=== PATIENT | female | born 1965 | race Caucasian/White ===

== ENCOUNTER 2017-08-17 16:46 | Emergency (ER) | payer BC, SELFPAY ==
[2017-08-17 17:51] LABS: #Basophils 0.1 thou/uL (0.0-0.2); #Eosinphils 0.1 thou/uL (0.0-0.7); #Lymphocytes 3.8 thou/uL (1.20-3.40); #Monocytes 0.5 thou/uL (0.11-0.59); #Neutrophils 4.7 thou/uL (1.40-6.50); %Basophils 1.3 % (0.0-1.0); %Eosinophils 1.2 % (0.0-10.0); %Lymphocytes 40.7 % (21.0-51.0); %Monocytes 5.8 % (0.0-10.0); Hemoglobin 12.9 g/dL (12.0-16.0); Mean Corpuscular HGB CONC 36.1 g/dL (32.0-36.0); Mean Corpuscular Hemoglobin 30.9 pg (27.0-31.0); Mean Corpuscular Volume 85.6 fl (81.0-99.0); Mean Platelet Volume 8.9 fL (7.4-10.4); Platelet Count 269 thou/uL (130-400); RBC Distribution Width 11.5 % (11.5-14.5); Red Blood Cell (RBC) Count 4.16 mill/uL (4.20-5.40); White Blood Cell (WBC) Count 9.3 thou/uL (4.8-10.8)
[2017-08-17 18:09] LABS: ALT (SGPT) 29 U/L (8-55); AST (SGOT) 27 U/L (5-34); Alkaline Phosphatase 162 U/L (40-150); Anion Gap 20 mmol/L (10-20); BUN (Urea Nitrogen) 20 mg/dL (9.8-20.1); Bilirubin, Total 0.7 mg/dL (0.2-1.2); Calc. Creatinine Clearance 0 mL/min (70-130); Carbon Dioxide 19 mmol/L (22-29); Chloride 88 mmol/L (98-107); Estimated GFR-MDRD 41; Globulin 4.5 g/dL (2.4-3.5); Potassium 3.5 mmol/L (3.5-5.1); Protein, Total 8.5 g/dL (6.0-8.3); Sodium 123 mmol/L (136-145)
[2017-08-17 18:14] LABS: Glucose 561 mg/dL (70-105)
[2017-08-17 18:26] LABS: Base Excess-Venous 0.6 mmol/L (0 (+/- 2.5)); Bicarbonate (HCO3v) 24.2 mmol/L (1.0-85.0); CO2 Tension (PvCO2) 34.8 mmHg (41.0-51.0); Calcium, Ionized 1.03 mmol/L (1.12-1.32); Hemoglobin - Calc 12.8 g/dL (12.0-18.0); O2 Tension (PvO2) 31.2 mmHg (35.0-45.0); Potassium 3.3 mmol/L (3.4-4.7); T. Carbon Dioxide 25.3 mmol/L (1.0-85.0); vO2 Saturation-calc 63.8 % (94-98)
[2017-08-17 18:28] LABS: Bilirubin Negative (Negative); Blood, Urine Negative (Negative); Clarity CLEAR (Clear); Glucose, Urine (Dipstick) 500 mg/dL (Negative); Leukocyte Negative (Negative); Nitrite Negative (Negative); Protein, Urine (Dipstick) Negative (Neg-Trace); Specific Gravity, Urine 1.016 (1.002-1.036); Urobilinogen 0.2 mg/dL (0.2-1.0)
[2017-08-17] MEDS ORDERED: Insulin Regular 300 UNITS/3 ML VIAL ONE (18:33)
[2017-08-17] MEDS ORDERED: Potassium Chloride 20 MEQ/100 ML PREMIX BAG ONE (18:33)
[2017-08-17] MEDS ORDERED: Potassium Bicarbonate/Cit Ac 25 MEQ TAB PO SCH (18:45)
[2017-08-17 20:30] LABS: Anion Gap 16 mmol/L (10-20); BUN (Urea Nitrogen) 18 mg/dL (9.8-20.1); Calc. Creatinine Clearance 0 mL/min (70-130); Calcium 8.9 mg/dL (7.8-10.44); Carbon Dioxide 19 mmol/L (22-29); Chloride 98 mmol/L (98-107); Estimated GFR-MDRD 56; Glucose 320 mg/dL (70-105); Potassium 4.4 mmol/L (3.5-5.1); Sodium 129 mmol/L (136-145)
--- NOTE | 2017-08-28 15:09 | EKG ---
Test Reason : Blood Pressure : / mmHG Vent. Rate : 082 BPM Atrial Rate : 082 BPM P-R Int : 152 ms QRS Dur : 082 ms QT Int : 398 ms P-R-T Axes : 019 003 005 degrees QTc Int : 464 ms Normal sinus rhythm Normal ECG Confirmed by PEMA PHILLIPS ([id number]), continuity editor RACHEL BULLOCK ([id number]) on 08/28/2017 3:09:18 PM Referred By: Confirmed By:PEMA PHILLIPS
== END 2017-08-17 22:02 | disposition home or self-care (01) ==
LOC: ERS 16:46
DX: E11.65 Type 2 diabetes mellitus with hyperglycemia (principal); E86.0 Dehydration; E03.9 Hypothyroidism, unspecified; E78.5 Hyperlipidemia, unspecified; I10 Essential (primary) hypertension; F41.9 Anxiety disorder, unspecified; F32.9 Major depressive disorder, single episode, unspecified; Z79.899 Other long term (current) drug therapy; Z79.84 Long term (current) use of oral hypoglycemic drugs
CPT/HCPCS: 36415; 36416; 80053; 81003; 82010; 82330; 82803; 85025; 93005; 96361; 96374; J1815; J3480

== ENCOUNTER 2018-12-15 23:55 | Emergency (ER) | payer BC ==
[2018-12-16 00:28] LABS: #Basophils 0.1 thou/uL (0.0-0.2); #Eosinphils 0.1 thou/uL (0.0-0.7); #Lymphocytes 2.5 thou/uL (1.20-3.40); #Monocytes 0.6 thou/uL (0.11-0.59); #Neutrophils 8.1 thou/uL (1.40-6.50); %Basophils 0.6 % (0.0-1.0); %Eosinophils 1.1 % (0.0-10.0); %Lymphocytes 22.3 % (21.0-51.0); Hemoglobin 12.9 g/dL (12.0-16.0); Mean Corpuscular HGB CONC 35.6 g/dL (32.0-36.0); Mean Corpuscular Hemoglobin 31.3 pg (27.0-31.0); Mean Corpuscular Volume 87.9 fL (78.0-98.0); Mean Platelet Volume 8.5 fL (7.4-10.4); Platelet Count 322 thou/uL (130-400); RBC Distribution Width 11.1 % (11.5-14.5); Red Blood Cell (RBC) Count 4.11 mill/uL (4.20-5.40); White Blood Cell (WBC) Count 11.4 thou/uL (4.8-10.8)
[2018-12-16 00:44] LABS: ALT (SGPT) 43 U/L (8-55); AST (SGOT) 56 U/L (5-34); Albumin 4.3 g/dL (3.5-5.0); Alkaline Phosphatase 151 U/L (40-110); Anion Gap 16 mmol/L (10-20); BUN (Urea Nitrogen) 26 mg/dL (9.8-20.1); Bilirubin, Total 0.4 mg/dL (0.2-1.2); Calc. Creatinine Clearance 0 mL/min (70-130); Calcium 10.3 mg/dL (7.8-10.44); Carbon Dioxide 23 mmol/L (22-29); Chloride 92 mmol/L (98-107); Estimated GFR-MDRD 32; Globulin 4.3 g/dL (2.4-3.5); Glucose 400 mg/dL (70-105); Potassium 4.1 mmol/L (3.5-5.1); Protein, Total 8.6 g/dL (6.0-8.3); Sodium 127 mmol/L (136-145)
[2018-12-16] MEDS ORDERED: Ondansetron PF 4 MG/2 ML Vial ONE (01:43)
--- NOTE | 2018-12-16 07:45 | CT ---
PRELIMINARY REPORT/[facility]/EMERGENCY AFTER HOURS PROCEDURE: PROCEDURE INFORMATION: Exam: CT Head without contrast Exam date and time: 12/16/2018 12:43 AM Clinical history: 53 years old, female; Syncope and collapse; Patient HX: 53 y/o F, with h/o HTN, hyperlipidemia, dmii, seizures, presents to ED S/P syncopal episode that occurred while PT was in the shower tonight. Prior to syncope, she states that she felt very weak and began seeing spots. TECHNIQUE: Imaging protocol: Computed tomography of the head without contrast. COMPARISON: No relevant prior studies available. FINDINGS: Brain: Normal. No hemorrhage. Unremarkable white matter. No mass effect. Ventricles: Normal. No ventriculomegaly. Bones/joints: Unremarkable. No acute fracture. Sinuses: Visualized sinuses are unremarkable. No fluid levels. Mastoid air cells: Visualized mastoid air cells are well aerated. Soft tissues: Unremarkable. IMPRESSION: No acute intracranial abnormality. Thank you for allowing us to participate in the care of your patient. Dictated and Authenticated by: Josee Cabrera MD 12/16/2018 1:17 AM Central Time ([place] & [place]) FINAL REPORT: EMERGENT AFTER HOURS CT HEAD WITHOUT IV CONTRAST: COMPARISON: 02/19/2011. HISTORY: Syncopal episode while in shower. Patient states felt weak. TECHNIQUE: Axial CT imaging at 5 mm intervals from vertex through skull base without contrast. FINDINGS: There is no evidence of an acute infarction, hemorrhage, mass effect, or midline shift. The ventricul ar system is normal in size, shape, and position. Visualized paranasal sinuses are clear. Osseous structures appear intact. IMPRESSION: 1. No acute intracranial abnormality demonstrated. CT of the head is stable when compared to prior s tudy. 2. Findings are in agreement with the preliminary report by [facility]. Transcribed Date/Time: 12/16/2018 7:54 AM
--- NOTE | 2018-12-16 08:12 | RAD ---
SINGLE VIEW CHEST: Date: 12/16/18 COMPARISON: 11/22/12. HISTORY: Seizures. Syncope. Hypertension. FINDINGS: Single view of the chest shows a normal sized cardiomediastinal silhouette. There is no evidence of c onsolidation, mass, or pleural effusion. The bones are unremarkable. IMPRESSION: No evidence of acute cardiopulmonary disease. POS: [facility]
== END 2018-12-16 02:47 | disposition home or self-care (01) ==
LOC: ERS 23:55
DX: R55 Syncope and collapse (principal); E86.0 Dehydration; E03.9 Hypothyroidism, unspecified; E78.5 Hyperlipidemia, unspecified; E78.00 Pure hypercholesterolemia, unspecified; E11.9 Type 2 diabetes mellitus without complications; I10 Essential (primary) hypertension; F41.9 Anxiety disorder, unspecified; F32.9 Major depressive disorder, single episode, unspecified; Z79.4 Long term (current) use of insulin; Z79.899 Other long term (current) drug therapy
CPT/HCPCS: 36415; 36416; 70450; 71045; 80053; 84484; 85025; 93005; 96361; 96374; J2405

== ENCOUNTER 2019-03-20 10:55 | Emergency (ER) | payer BC ==
[2019-03-20 11:43] LABS: #Basophils 0.1 thou/uL (0.0-0.2); #Eosinphils 0.2 thou/uL (0.0-0.7); #Lymphocytes 2.6 thou/uL (1.20-3.40); #Monocytes 0.5 thou/uL (0.11-0.59); #Neutrophils 9.5 thou/uL (1.40-6.50); %Basophils 0.8 % (0.0-1.0); %Eosinophils 1.3 % (0.0-10.0); %Lymphocytes 19.9 % (21.0-51.0); %Monocytes 3.9 % (0.0-10.0); %Neutrophils 74.1 % (42.0-75.0); Hemoglobin 11.6 g/dL (12.0-16.0); Mean Corpuscular HGB CONC 33.8 g/dL (32.0-36.0); Mean Corpuscular Hemoglobin 30.6 pg (27.0-31.0); Mean Corpuscular Volume 90.4 fL (78.0-98.0); Platelet Count 314 thou/uL (130-400); RBC Distribution Width 11.2 % (11.5-14.5); Red Blood Cell (RBC) Count 3.78 mill/uL (4.20-5.40); White Blood Cell (WBC) Count 12.8 thou/uL (4.8-10.8)
[2019-03-20 12:11] LABS: Lactic Acid 2.2 mmol/L (0.5-2.2)
[2019-03-20 12:15] LABS: ALT (SGPT) 18 U/L (8-55); AST (SGOT) 25 U/L (5-34); Alkaline Phosphatase 150 U/L (40-110); Anion Gap 15 mmol/L (10-20); BUN (Urea Nitrogen) 16 mg/dL (9.8-20.1); Bilirubin, Total 0.3 mg/dL (0.2-1.2); Calc. Creatinine Clearance 0 mL/min (70-130); Calcium 8.9 mg/dL (7.8-10.44); Carbon Dioxide 22 mmol/L (22-29); Chloride 104 mmol/L (98-107); Estimated GFR-MDRD 54; Globulin 4.2 g/dL (2.4-3.5); Glucose 213 mg/dL (70-105); Potassium 3.6 mmol/L (3.5-5.1); Protein, Total 8.2 g/dL (6.0-8.3); Sodium 137 mmol/L (136-145)
[2019-03-20] MEDS ORDERED: Ketorolac Tromethamine 30 MG/ML VIAL ONE (13:52)
--- NOTE | 2019-03-20 15:07 | RAD ---
PORTABLE CHEST ONE VIEW: 03/20/2019 11:21 a.m. HISTORY: Cough. COMPARISON: 12/16/2018 FINDINGS: There is continued elevation of the right hemidiaphragm. The heart size is normal. The lungs are well expanded without lobar consolidation, pneumothoraces or pleural effusions. IMPRESSION: No radiographic evidence of acute cardiopulmonary process. POS: [facility]
== END 2019-03-20 14:35 | disposition home or self-care (01) ==
LOC: ERS 10:55
DX: J11.1 Influenza due to unidentified influenza virus with other respiratory manifestations (principal); E03.9 Hypothyroidism, unspecified; E78.5 Hyperlipidemia, unspecified; E78.00 Pure hypercholesterolemia, unspecified; F41.9 Anxiety disorder, unspecified; F32.9 Major depressive disorder, single episode, unspecified; Z79.4 Long term (current) use of insulin; Z79.899 Other long term (current) drug therapy
CPT/HCPCS: 36415; 71045; 80053; 83605; 85025; 96374; J1885

== ENCOUNTER 2020-03-07 13:06 | Emergency (ER) | payer BC | END 2020-03-07 14:00 | disposition home or self-care (01) | LOC: ERS 13:06 | DX: S16.1XXA Strain of muscle, fascia and tendon at neck level, initial encounter (principal); S46.912A Strain of unspecified muscle, fascia and tendon at shoulder and upper arm level, left arm, initial encounter; E03.9 Hypothyroidism, unspecified; E78.5 Hyperlipidemia, unspecified; E78.00 Pure hypercholesterolemia, unspecified; E11.9 Type 2 diabetes mellitus without complications; I10 Essential (primary) hypertension; Z79.01 Long term (current) use of anticoagulants; Z79.4 Long term (current) use of insulin; Z79.899 Other long term (current) drug therapy | CPT/HCPCS: 99283 ==